=== PATIENT | male | born 1980 | race American Indian/Alaskan Native ===

== ENCOUNTER 2021-06-22 06:08 | Day surgery (SDC) | payer BC ==
[~2021-06-22 06:08] MED LIST: LACTATED RINGERS 1,000 ML IV SCH; MIDAZOLAM 2 MG/2 ML INJ IV NR
[2021-06-22] MEDS ORDERED: GENTAMICIN/NS 80 MG/100 ML 100 ML IV SCH (07:00)
[2021-06-22] MEDS ORDERED: HYDROmorphone 1 MG/1 ML INJ IV PRN (07:32)
[2021-06-22] MEDS ORDERED: HYDROcodone/ACETAMINOPHEN 5-325 MG TAB PO PRN (07:32)
[2021-06-22] MEDS ORDERED: ONDANSETRON 4 MG/2 ML INJ IV PRN (07:32)
--- NOTE | 2021-06-22 07:32 | Anesthesia Day of Surgery ---
Anesthesia Day of Surgery - Day of Surgery Patient Examined: Yes Patient H&P Reviewed: Yes Patient is NPO: Yes
--- NOTE | 2021-06-22 07:32 | Anesthesia Consultation ---
Anesthesia Consult and Med Hx Date of service: 06/22/21 - Airway Anesthetic Teeth Evaluation: Good ROM Head & Neck: Adequate Mental/Hyoid Distance: Adequate Mallampati Class: Class I Intubation Access Assessment: Good - Pre-Operative Health Status ASA Pre-Surgery Classification: ASA3 Proposed Anesthetic Plan: General - Pulmonary Hx Smoking: Yes (former smoker quit 01/2021) Hx Asthma: Yes (occasional "wheezing" w/ prn albuterol, last use 2wks ago) Hx Respiratory Symptoms: No - Cardiovascular System Hx Hypertension: No - Central Nervous System CVA: No - Endocrine Hx Renal Disease: No Hx Liver Disease: No Hx Insulin Dependent Diabetes: No Hx Non-Insulin Dependent Diabetes: No Hx Thyroid Disease: No - Other Systems Hx Obesity: Yes (BMI-40) - Additional Comments Anesthesia Medical History Comments: No hx anesthetic complications.
[2021-06-22] MEDS ORDERED: ceFAZolin/STERILE WATER 2 GM/20 ML SYRINGE IV NR (08:00)
[2021-06-22] MEDS ORDERED: GENTAMICIN 40 MG/ML VIAL 2 ML ONE (08:00)
[2021-06-22] MEDS ORDERED: MIDAZOLAM 2 MG/2 ML INJ ONE (08:06)
[2021-06-22] MEDS ORDERED: fentaNYL 100 MCG/2 ML INJ ONE (08:07)
[2021-06-22] MEDS ORDERED: propofoL 200 MG/20 ML VIAL IV ONE ×2 (08:07→08:24)
[2021-06-22] MEDS ORDERED: WATER FOR IRRIG STERILE 2000 ML IR ONE (08:45)
--- NOTE | 2021-06-22 08:59 | Short Stay Summary ---
Short Stay Documentation Date of service: 06/22/21 - History H&P: obtained from office - Allergies and Medications Current Medications: Allergies No Known Allergies Allergy (Unverified 06/15/21 11:49) Home Medications Medication Instructions Recorded Confirmed Last Taken Type Cetirizine HCl [Allergy] 10 mg PO DAILY 06/15/21 06/15/21 Unknown History Cholecalciferol Vit D3 [Vitamin D3 1 tab PO DAILY 06/15/21 06/15/21 Unknown History 1,000 UNIT TAB] Active Medications Hydrocodone Bitart/Acetaminophen (Hydrocodone/Acetaminophen 5-325 Mg Tab) 2 each PO ONCE PRN PRN Reason: Pain, Moderate (4-6) Stop: 06/22/21 18:00 Hydromorphone HCl (Hydromorphone 1 Mg/1 Ml Inj) 0.5 mg IV Q10MIN PRN PRN Reason: Pain , Severe (7-10) Stop: 06/22/21 18:00 Lactated Ringer's (Lactated Ringers) 1,000 mls @ 100 mls/hr IV DIRECT FRANSISCO Stop: 06/22/21 23:59 Gentamicin Sulfate/Sodium Chloride (Gentamicin/Ns 80 Mg/100 Ml) 100 mls @ 200 mls/hr IV ONCE@0700 FRANSISCO; Protocol Stop: 06/22/21 15:00 Cefazolin Sodium 3 gm/ Sodium (Chloride) 100 mls @ 100 mls/30 min IV PREOP NR Stop: 06/22/21 15:00 Midazolam HCl (Midazolam 2 Mg/2 Ml Inj) 2 mg IV PREOP NR Stop: 06/22/21 23:59 Ondansetron HCl (Ondansetron 4 Mg/2 Ml Inj) 4 mg IV ONCE PRN PRN Reason: Nausea And Vomiting Stop: 06/22/21 18:00 - Brief post op/procedure progress note Date of procedure: 06/22/21 Pre-op diagnosis: bph, penile lesions Post-op diagnosis: same Procedure: cysto, rpg, excision of penile lesion, co2 laser of penile pelvic lesions Anesthesia: KEAGANA Surgeon: CLEVELAND DIXON Estimated blood loss: minimal Pathology: list (penile lesion) Specimen disposition: to lab Condition: stable - Hospital course Hospital course: macrobid, ultram, norco on chart - Disposition Condition at discharge: Stable Disposition: 01 HOME / SELF CARE / HOMELESS Short Stay Discharge Plan Follow up with: SEVERIANO GUERRERO MD [Primary Care Provider] - 7 Days
--- NOTE | 2021-06-22 09:31 | Fluoroscopy Report ---
FLUOROSCOPY RETROGRADE UROGRAPHY HISTORY: Laser and incisional penile lesion FINDINGS: Fluoroscopy was provided by radiology during retrograde urography by the urologist. There i s normal filling of both renal collecting systems. No filling defect or abnormal dilatation is identi fied. IMPRESSION: Unremarkable bilateral retrograde pyelograms Fluoroscopy time: 14 seconds Fluoroscopic images: 5 Signer Name: Jose Francisco Samaniego Jr, MD Signed: 06/22/2021 9:27 AM Workstation Name: [id number]
[2021-06-22 10:30] VITALS: BP 162/92
--- NOTE | 2021-06-22 11:31 | Post Anesthesia Evaluation ---
- Post Anesthesia Evaluation Patient Participated: Yes Airway Patent: Yes Stable Respiratory Function: Yes Nausea/Vomiting: No Temp > 96.8F: Yes Pain Manageable: Yes Adequeate Hydration: Yes Anesthesia Complications: No
--- NOTE | 2021-06-22 11:59 | Operative Report ---
DATE OF SURGERY: 06/22/2021 PREOPERATIVE DIAGNOSES: Benign prostatic hypertrophy, penile lesions. POSTOPERATIVE DIAGNOSES: Benign prostatic hypertrophy, penile lesions. PROCEDURES PERFORMED: Cystoscopy, bilateral retrograde pyelograms, excision of right penile lesion, CO2 of penile lesion and pelvic lesion. SURGEON: Jesus Brown MD ANESTHESIA: General. ESTIMATED BLOOD LOSS: Minimal. FLUIDS: Crystalloid. COMPLICATIONS: No complications. INDICATIONS: This patient is a 40-year-old gentleman known to our service with worsening penile lesions on the shaft approximately 10 mm and multiple satellite lesions on the ventral surface of the shaft. Discussed options, he agreed to proceed with surgical intervention. Risks, benefits, complications were explained. DESCRIPTION OF PROCEDURE: The patient was taken to the operative suite, placed in a supine position. After adequate general anesthesia, placed in a dorsal lithotomy position, prepped and draped in a sterile fashion. Pancystourethroscopy was performed with a 22-Djiboutian Storz cystoscope. No urethral abnormalities. His prostate displayed some mild prostatic obstruction. Bladder, no tumors or stones were noted. Both ureteral orifices in normal position. Bilateral retrograde pyelograms were obtained with an 8-D[place]iboutian Mallory catheter and 8 mL of contrast. No filling defects or obstruction. Next, attention was taken to the penis. He had approximately a 10 mm lesion on the shaft. It was excised and sent for routine pathologic evaluation. A 3-0 chromic interrupted suture was used to close the incision without difficulty. He had several lesions on the ventral surface of the shaft as well as on the inner thigh in the crease area on the right side. CO2 laser ablation was then performed starting with 4 rodriguez and going up to 8 rodriguez to completely ablate the lesions with rim. Approximately, a 3-5 mm rim of normal tissue was ablated. Silvadene cream was placed. The patient tolerated the procedure well. Rectal exam was benign. He was extubated and taken to the recovery room. He will go home on Macrobid, Ultram and Bactrim. TID: [id number] RECEIPT: [id number] MELY/BENSON/AMY
== END 2021-06-22 09:55 | disposition home or self-care (01) ==
LOC: OR 06:08
PROVIDERS: ATTEND Urology
DX: N40.0 Benign prostatic hyperplasia without lower urinary tract symptoms (principal); N48.89 Other specified disorders of penis; E78.00 Pure hypercholesterolemia, unspecified; J45.909 Unspecified asthma, uncomplicated; K21.9 Gastro-esophageal reflux disease without esophagitis; M19.90 Unspecified osteoarthritis, unspecified site; Z20.822 Contact with and (suspected) exposure to COVID-19; Z87.891 Personal history of nicotine dependence; Z79.899 Other long term (current) drug therapy; Z72.89 Other problems related to lifestyle; Z98.890 Other specified postprocedural states
CPT/HCPCS: 52005; 54057; 74420; 88305; 88342; C1758; J0690; J1580; J2250; J2704; J3010; J7120; Q9967; U0003